=== PATIENT | female | born 1985 | race Caucasian/White ===

== ENCOUNTER 2023-11-26 13:52 | Emergency (ER) | payer BC, MEDICAID ==
[2023-11-26] MEDS ORDERED: fentaNYL 50 MCG/ML SDV IVPUSH ONE (14:20)
[2023-11-26] MEDS ORDERED: Ondansetron 4 MG/2 ML SDV IVPUSH ONE (14:20)
[2023-11-26] MEDS ORDERED: Sodium Chloride 0.9% 1,000 ML IV ONE (14:20)
[2023-11-26] MEDS ORDERED: Naloxone 0.4 MG/ML SDV IVPUSH PRN (14:20)
[2023-11-26 14:27] LABS: BASOPHILS PERCENT AUTO 0.3 % (0.2-1.2); EOSINOPHILS ABSOLUTE AUTO 0.3 x10^3/uL (0.0-0.5); HEMATOCRIT 42.8 % (33.0-47.0); HEMOGLOBIN 14.2 g/dL (12.0-16.0); IMMATURE GRAN ABSOLUTE AUTO 0.01 x10^3/uL (0.00-0.07); LYMPHOCYTES ABSOLUTE AUTO 1.7 x10^3/uL (1.0-4.8); LYMPHOCYTES PERCENT AUTO 27.2 % (25.0-50.0); MEAN CORPUSCULAR HGB CONC 33.2 g/dL (32.0-36.0); MEAN CORPUSCULAR VOLUME 87.3 fL (78.0-93.0); MONOCYTES ABSOLUTE AUTO 0.5 x10^3/uL (0.0-0.8); MONOCYTES PERCENT AUTO 7.7 % (2.0-11.0); NEUTROPHILS ABSOLUTE AUTO 3.7 x10^3/uL (1.8-7.7); NEUTROPHILS PERCENT AUTO 59.6 % (50.0-80.0); PLATELET COUNT,PLT 259 x10^3/uL (130-400); WHITE BLOOD CELL COUNT,WBC 6.1 x10^3/uL (4.0-10.0)
[2023-11-26 14:45] LABS: APPEARANCE,URINE CLEAR (CLEAR); BILIRUBIN,URINE SMALL (NEGATIVE); COLOR,URINE DARK YELLOW (YELLOW); GLUCOSE,URINE NEGATIVE (NEGATIVE); KETONES,URINE 15 mg/dL (NEGATIVE); LEUKOCYTE ESTERASE,URINE NEGATIVE (NEGATIVE); NITRITE,URINE NEGATIVE (NEGATIVE); OCCULT BLOOD,URINE NEGATIVE (NEGATIVE); PH,URINE 5.5 (5.0-8.0); PROTEIN,URINE 30 mg/dL (NEGATIVE); UROBILINOGEN,URINE 0.2 EU/dL (0.2)
[2023-11-26 14:57] LABS: A/G RATIO 1.05; ALANINE AMINOTRANSFERASE,ALT 24 U/L (14-59); ALBUMIN 4.1 g/dL (3.4-5.0); ALKALINE PHOSPHATASE 77 U/L (46-116); ASPARTATE AMNIOTRANSFERASE,AST 18 U/L (15-37); BILIRUBIN TOTAL 0.6 mg/dL (0.2-1.0); BLOOD UREA NITROGEN,BUN 14 mg/dL (7-18); CALCIUM 9.3 mg/dL (8.5-10.1); CARBON DIOXIDE,CO2 26 mmol/L (21-32); CHLORIDE,CL 104 mmol/L (98-107); GLUCOSE RANDOM 80 mg/dL (70-99); LIPASE 31 U/L (19-71); POTASSIUM,K 3.6 mmol/L (3.5-5.1); SODIUM,NA 140 mmol/L (136-145)
[2023-11-26 14:59] LABS: BACTERIA,URINE OCCASIONAL /HPF (NOT SEEN); MUCUS,URINE FEW /LPF (NOT SEEN); RBC,URINE 0-5 /HPF (NOT SEEN); SQUAMOUS EPITHELIAL CELLS,UR OCCASIONAL /HPF (NOT SEEN); WBC,URINE 0-5 /HPF (NOT SEEN)
[2023-11-26 15:00] LABS: ANION GAP 13.6 mmol/L (5-15); C-REACTIVE PROTEIN < 0.50 mg/dL (<=0.50); ESTIMATED GFR 75 mL/min (>=60)
[2023-11-26] MEDS ORDERED: Iopamidol 612 MG/ML 100 ML Bottle IVPUSH ONE (15:31)
[2023-11-26] MEDS ORDERED: Sodium Chloride 0.9% 500 ML IV ONE (18:55)
== END 2023-11-26 19:25 | disposition short-term general hospital (02) ==
LOC: VM.ED 13:52
DX: R10.31 Right lower quadrant pain (principal); Z88.0 Allergy status to penicillin; Z88.2 Allergy status to sulfonamides; Z88.5 Allergy status to narcotic agent; Z79.899 Other long term (current) drug therapy
CPT/HCPCS: 74177; 80053; 81001; 81025; 83690; 85025; 86140; 96361; 96374; 99285; J2405; J7030; Q9967; 99284